=== PATIENT | female | born 1950 | race Two or more races ===

== ENCOUNTER 2017-09-24 14:10 | Inpatient (IN) | payer MEDICARE ==
[~2017-09-24] VITALS: Ht 170.2 cm; Wt 62.6 kg
[2017-09-24 14:00] VITALS: BP 151/62
[2017-09-24] MEDS ORDERED: LORAZEPAM 1MG TABLET PO PRN (15:15)
[2017-09-24] MEDS ORDERED: TEMAZEPAM 15MG CAPSULE PO PRN (15:15)
[2017-09-24 16:33] VITALS: BP 151/62
[2017-09-24] MEDS ORDERED: testosterone (17:26)
[2017-09-24] MEDS ORDERED: estradiol (17:26)
[2017-09-24] MEDS: DOCUSATE SODIUM 100MG CAPSULE PO SCH (17:40)
[2017-09-24 20:00] VITALS: BP 175/63
[2017-09-24] MEDS: METOPROLOL TARTRATE 25MG TABLET PO SCH (20:29)
[2017-09-24] MEDS: HYDROCODONE/ACETAMINOPHEN 5/325MG TABLET PO PRN (20:30)
[2017-09-24 23:00] VITALS: BP 161/70
[2017-09-25 07:00] VITALS: BP 161/71
[2017-09-25 07:12] LABS: HEMATOCRIT. 36.6 % (36.0-48.0); HEMOGLOBIN. 12.2 g/dL (12.0-16.0); MEAN CORPUSCULAR HEMOGLOBIN 33.3 pg (28.0-32.0); MEAN CORPUSCULAR VOLUME 99.9 fL (81.0-99.0); MEAN PLATELET VOLUME 10.5 fl (7.4-10.4); PLATELET 154 x1000/uL (130-400); RED BLOOD CELL COUNT 3.66 mill/uL (4.2-5.4); RED CELL DISTRIBUTION WIDTH 13.2 % (11.6-14.6)
[2017-09-25 07:46] LABS: CHLORIDE 103 mEq/L (98-107)
[2017-09-25] MEDS: CITALOPRAM HYDROBROMIDE 20MG TABLET PO SCH (08:22)
[2017-09-25] MEDS: CALCITONIN,SALMON, 3.7 ML NASAL SPRAY ONENSTRL SCH (08:22)
[2017-09-25] MEDS: FAMOTIDINE 20MG TABLET PO SCH (08:22)
[2017-09-25] MEDS: DOCUSATE SODIUM 100MG CAPSULE PO SCH ×2 (08:23→17:02)
[2017-09-25] MEDS: METOPROLOL TARTRATE 25MG TABLET PO SCH ×2 (08:23→20:51)
[2017-09-25 09:00] VITALS: BP 130/66
[2017-09-25] MEDS: ENOXAPARIN 40MG/0.4ML SYR SUBCUT SCH (09:08)
[2017-09-25] MEDS: HYDROCODONE/ACETAMINOPHEN 5/325MG TABLET PO PRN ×2 (09:11→20:52)
[2017-09-25] MEDS: ACETAMINOPHEN 325MG TABLET PO PRN (17:06)
[2017-09-25 20:00] VITALS: BP 130/52
[2017-09-25] MEDS: CLONIDINE 0.1MG TABLET PO SCH (22:00)
[2017-09-26] MEDS: CLONIDINE 0.1MG TABLET PO SCH ×3 (06:00→21:46)
[2017-09-26 06:44] LABS: HEMATOCRIT. 36.1 % (36.0-48.0); HEMOGLOBIN. 12.4 g/dL (12.0-16.0); MEAN CORPUSCULAR HEMOGLOBIN 34.3 pg (28.0-32.0); MEAN CORPUSCULAR VOLUME 99.5 fL (81.0-99.0); MEAN PLATELET VOLUME 10.5 fl (7.4-10.4); PLATELET 162 x1000/uL (130-400); RED BLOOD CELL COUNT 3.63 mill/uL (4.2-5.4)
[2017-09-26 07:09] LABS: CHLORIDE 105 mEq/L (98-107)
[2017-09-26 07:28] LABS: HDL CHOLESTEROL 64 mg/dL (40-59); LDL CHOLESTEROL 91 mg/dL (5-100); TOTAL IRON BINDING CAPACITY 333 ug/dL (250-450)
[2017-09-26 07:29] VITALS: BP 151/57
[2017-09-26 09:04] LABS: PLATELET ESTIMATE NORMAL
[2017-09-26] MEDS: CALCITONIN,SALMON, 3.7 ML NASAL SPRAY ONENSTRL SCH (09:22)
[2017-09-26] MEDS: HYDROCODONE/ACETAMINOPHEN 5/325MG TABLET PO PRN (09:23)
[2017-09-26] MEDS: FAMOTIDINE 20MG TABLET PO SCH (09:23)
[2017-09-26] MEDS: DOCUSATE SODIUM 100MG CAPSULE PO SCH ×2 (09:23→17:52)
[2017-09-26] MEDS: ENOXAPARIN 40MG/0.4ML SYR SUBCUT SCH (09:24)
[2017-09-26] MEDS: METOPROLOL TARTRATE 25MG TABLET PO SCH ×2 (09:24→20:36)
[2017-09-26] MEDS: CITALOPRAM HYDROBROMIDE 20MG TABLET PO SCH (09:24)
[2017-09-26 12:07] LABS: FOLIC ACID (FOLATE) SERUM 19.1 ng/mL (>5.38)
[2017-09-26] MEDS: FERROUS SULFATE 325MG TABLET PO SCH ×2 (13:09→17:52)
[2017-09-26 13:19] LABS: PLATELET ESTIMATE NORMAL
[2017-09-26] MEDS: ACETAMINOPHEN 325MG TABLET PO PRN ×2 (14:25→21:45)
[2017-09-26 20:00] VITALS: BP 113/33
[2017-09-27] MEDS: CLONIDINE 0.1MG TABLET PO SCH ×3 (05:42→21:36)
[2017-09-27 08:00] VITALS: BP 120/52
[2017-09-27] MEDS: FERROUS SULFATE 325MG TABLET PO SCH ×3 (09:56→17:29)
[2017-09-27] MEDS: CITALOPRAM HYDROBROMIDE 20MG TABLET PO SCH (09:56)
[2017-09-27] MEDS: ASCORBIC ACID 500 MG TABLET PO SCH (09:56)
[2017-09-27] MEDS: DOCUSATE SODIUM 100MG CAPSULE PO SCH ×2 (09:56→17:29)
[2017-09-27] MEDS: FAMOTIDINE 20MG TABLET PO SCH (09:57)
[2017-09-27] MEDS: HYDROCODONE/ACETAMINOPHEN 5/325MG TABLET PO PRN (09:57)
[2017-09-27] MEDS: ENOXAPARIN 40MG/0.4ML SYR SUBCUT SCH (09:58)
[2017-09-27] MEDS: METOPROLOL TARTRATE 25MG TABLET PO SCH ×2 (09:58→21:00)
[2017-09-27] MEDS: CALCITONIN,SALMON, 3.7 ML NASAL SPRAY ONENSTRL SCH (09:58)
[2017-09-27 20:00] VITALS: BP 125/38
[2017-09-27] MEDS: ACETAMINOPHEN 325MG TABLET PO PRN (20:03)
[2017-09-27] MEDS: DIPHENHYDRAMINE 25MG CAPSULE PO PRN (21:41)
[2017-09-28] MEDS: CLONIDINE 0.1MG TABLET PO SCH ×3 (05:44→21:57)
[2017-09-28 08:08] VITALS: BP 122/45
[2017-09-28] MEDS: CALCITONIN,SALMON, 3.7 ML NASAL SPRAY ONENSTRL SCH (08:21)
[2017-09-28] MEDS: ASCORBIC ACID 500 MG TABLET PO SCH (08:23)
[2017-09-28] MEDS: FAMOTIDINE 20MG TABLET PO SCH (08:23)
[2017-09-28] MEDS: METOPROLOL TARTRATE 25MG TABLET PO SCH ×2 (08:23→21:00)
[2017-09-28] MEDS: CITALOPRAM HYDROBROMIDE 20MG TABLET PO SCH (08:24)
[2017-09-28] MEDS: DOCUSATE SODIUM 100MG CAPSULE PO SCH ×3 (08:24→17:19)
[2017-09-28] MEDS: FERROUS SULFATE 325MG TABLET PO SCH ×3 (08:24→17:19)
[2017-09-28] MEDS: ENOXAPARIN 40MG/0.4ML SYR SUBCUT SCH (08:25)
[2017-09-28 10:55] VITALS: BP 148/56
[2017-09-28] MEDS: HYDROCODONE/ACETAMINOPHEN 5/325MG TABLET PO PRN ×2 (11:03→22:02)
[2017-09-28 13:50] VITALS: BP 147/57
[2017-09-28 15:40] VITALS: BP 130/39
[2017-09-28 20:00] VITALS: BP 134/42
[2017-09-29] MEDS: CLONIDINE 0.1MG TABLET PO SCH ×3 (06:00→21:46)
[2017-09-29 06:58] LABS: CHLORIDE 105 mEq/L (98-107)
[2017-09-29 07:20] LABS: EOSINOPHILS % 1.8 % (0.0-5.0); HEMATOCRIT. 34.1 % (36.0-48.0); HEMOGLOBIN. 11.6 g/dL (12.0-16.0); LYMPHOCYTES % 22.4 % (20.0-50.0); MEAN CORPUSCULAR HEMOGLOBIN 33.9 pg (28.0-32.0); MEAN CORPUSCULAR VOLUME 99.9 fL (81.0-99.0); MEAN PLATELET VOLUME 10.9 fl (7.4-10.4); MONOCYTES % 14.6 % (2.0-8.0); NEUTROPHILS % 60.2 % (40.0-76.0); PLATELET 171 x1000/uL (130-400); RED BLOOD CELL COUNT 3.42 mill/uL (4.2-5.4); RED CELL DISTRIBUTION WIDTH 13.1 % (11.6-14.6)
[2017-09-29 08:00] VITALS: BP 157/49
[2017-09-29] MEDS: CALCITONIN,SALMON, 3.7 ML NASAL SPRAY ONENSTRL SCH (08:28)
[2017-09-29] MEDS: FERROUS SULFATE 325MG TABLET PO SCH ×3 (08:29→18:09)
[2017-09-29] MEDS: FAMOTIDINE 20MG TABLET PO SCH (08:29)
[2017-09-29] MEDS: ASCORBIC ACID 500 MG TABLET PO SCH (08:29)
[2017-09-29] MEDS: ENOXAPARIN 40MG/0.4ML SYR SUBCUT SCH (08:29)
[2017-09-29] MEDS: CITALOPRAM HYDROBROMIDE 20MG TABLET PO SCH (08:30)
[2017-09-29] MEDS: METOPROLOL TARTRATE 25MG TABLET PO SCH ×2 (08:30→21:00)
[2017-09-29] MEDS: DOCUSATE SODIUM 100MG CAPSULE PO SCH ×2 (08:37→17:00)
[2017-09-29 09:05] VITALS: BP_SYST 135
[2017-09-29] MEDS: HYDROCODONE/ACETAMINOPHEN 5/325MG TABLET PO PRN ×2 (09:10→22:24)
[2017-09-29] MEDS: ACETAMINOPHEN 325MG TABLET PO PRN (10:44)
[2017-09-29 13:00] VITALS: BP 150/48
[2017-09-29 20:00] VITALS: BP_SYST 134; BP_SYST 157; BP_DIAS 68; BP_DIAS 85
[2017-09-29] MEDS ORDERED: TEMAZEPAM 15MG CAPSULE PO PRN (20:30)
[2017-09-29] MEDS: LORAZEPAM 1MG TABLET PO PRN (20:53)
[2017-09-30] MEDS: CLONIDINE 0.1MG TABLET PO SCH ×3 (06:00→22:00)
[2017-09-30 08:00] VITALS: BP 152/60
[2017-09-30] MEDS: FERROUS SULFATE 325MG TABLET PO SCH ×3 (08:50→16:23)
[2017-09-30] MEDS: METOPROLOL TARTRATE 25MG TABLET PO SCH ×2 (08:52→21:00)
[2017-09-30] MEDS: ASCORBIC ACID 500 MG TABLET PO SCH (08:52)
[2017-09-30] MEDS: CITALOPRAM HYDROBROMIDE 20MG TABLET PO SCH (08:53)
[2017-09-30] MEDS: FAMOTIDINE 20MG TABLET PO SCH (08:54)
[2017-09-30] MEDS: ENOXAPARIN 40MG/0.4ML SYR SUBCUT SCH (08:54)
[2017-09-30] MEDS: CALCITONIN,SALMON, 3.7 ML NASAL SPRAY ONENSTRL SCH (08:55)
[2017-09-30] MEDS: DOCUSATE SODIUM 100MG CAPSULE PO SCH ×2 (09:00→16:24)
[2017-09-30] MEDS: HYDROCODONE/ACETAMINOPHEN 5/325MG TABLET PO PRN (09:14)
[2017-09-30 13:07] LABS: 25-HYDROXY VITAMIN D3 48 ng/mL (.)
[2017-09-30 20:00] VITALS: BP 122/59
[2017-09-30] MEDS: LORAZEPAM 1MG TABLET PO PRN (21:27)
[2017-10-01] MEDS: CLONIDINE 0.1MG TABLET PO SCH ×3 (05:30→22:00)
[2017-10-01 07:20] LABS: EOSINOPHILS % 1.9 % (0.0-5.0); HEMATOCRIT. 38.2 % (36.0-48.0); HEMOGLOBIN. 12.7 g/dL (12.0-16.0); LYMPHOCYTES % 23.4 % (20.0-50.0); MEAN CORPUSCULAR VOLUME 99.8 fL (81.0-99.0); MEAN PLATELET VOLUME 11.1 fl (7.4-10.4); MONOCYTES % 13.2 % (2.0-8.0); NEUTROPHILS % 60.5 % (40.0-76.0); PLATELET 210 x1000/uL (130-400); RED BLOOD CELL COUNT 3.83 mill/uL (4.2-5.4); RED CELL DISTRIBUTION WIDTH 13.2 % (11.6-14.6)
[2017-10-01 08:00] VITALS: BP 126/76
[2017-10-01 08:48] LABS: CHLORIDE 106 mEq/L (98-107)
[2017-10-01] MEDS: FERROUS SULFATE 325MG TABLET PO SCH ×3 (09:05→17:56)
[2017-10-01] MEDS: DOCUSATE SODIUM 100MG CAPSULE PO SCH ×2 (09:05→17:56)
[2017-10-01] MEDS: CITALOPRAM HYDROBROMIDE 20MG TABLET PO SCH (09:05)
[2017-10-01] MEDS: ASCORBIC ACID 500 MG TABLET PO SCH (09:06)
[2017-10-01] MEDS: FAMOTIDINE 20MG TABLET PO SCH (09:06)
[2017-10-01] MEDS: METOPROLOL TARTRATE 25MG TABLET PO SCH ×2 (09:06→20:32)
[2017-10-01] MEDS: HYDROCODONE/ACETAMINOPHEN 5/325MG TABLET PO PRN ×2 (09:07→14:45)
[2017-10-01] MEDS: ENOXAPARIN 40MG/0.4ML SYR SUBCUT SCH (09:08)
[2017-10-01] MEDS: CALCITONIN,SALMON, 3.7 ML NASAL SPRAY ONENSTRL SCH (09:18)
[2017-10-01 20:00] VITALS: BP 137/45
[2017-10-01] MEDS: LORAZEPAM 1MG TABLET PO PRN (20:35)
[2017-10-02] MEDS: CLONIDINE 0.1MG TABLET PO SCH ×3 (06:00→21:08)
[2017-10-02] MEDS: HYDROCODONE/ACETAMINOPHEN 5/325MG TABLET PO PRN ×2 (06:54→20:36)
[2017-10-02 08:00] VITALS: BP 166/58
[2017-10-02] MEDS: FERROUS SULFATE 325MG TABLET PO SCH ×3 (10:12→18:12)
[2017-10-02] MEDS: ASCORBIC ACID 500 MG TABLET PO SCH (10:12)
[2017-10-02] MEDS: CALCITONIN,SALMON, 3.7 ML NASAL SPRAY ONENSTRL SCH (10:12)
[2017-10-02] MEDS: DOCUSATE SODIUM 100MG CAPSULE PO SCH ×2 (10:12→18:12)
[2017-10-02] MEDS: CITALOPRAM HYDROBROMIDE 20MG TABLET PO SCH (10:12)
[2017-10-02] MEDS: ENOXAPARIN 40MG/0.4ML SYR SUBCUT SCH (10:12)
[2017-10-02] MEDS: FAMOTIDINE 20MG TABLET PO SCH (10:12)
[2017-10-02] MEDS: METOPROLOL TARTRATE 25MG TABLET PO SCH ×2 (10:13→21:00)
[2017-10-02] MEDS ORDERED: TEMAZEPAM 15MG CAPSULE PO PRN (18:15)
[2017-10-02 20:00] VITALS: BP 144/41
[2017-10-02] MEDS: LORAZEPAM 1MG TABLET PO PRN (22:13)
[2017-10-03] MEDS: CLONIDINE 0.1MG TABLET PO SCH ×3 (05:30→21:41)
[2017-10-03 08:18] VITALS: BP 163/65
[2017-10-03] MEDS: METOPROLOL TARTRATE 25MG TABLET PO SCH ×2 (08:41→21:40)
[2017-10-03] MEDS: ASCORBIC ACID 500 MG TABLET PO SCH (08:41)
[2017-10-03] MEDS: CITALOPRAM HYDROBROMIDE 20MG TABLET PO SCH ×2 (08:42→08:47)
[2017-10-03] MEDS: FAMOTIDINE 20MG TABLET PO SCH (08:42)
[2017-10-03] MEDS: DOCUSATE SODIUM 100MG CAPSULE PO SCH ×2 (08:42→17:32)
[2017-10-03] MEDS: FERROUS SULFATE 325MG TABLET PO SCH ×3 (08:42→17:32)
[2017-10-03] MEDS: CALCITONIN,SALMON, 3.7 ML NASAL SPRAY ONENSTRL SCH (08:42)
[2017-10-03] MEDS: ENOXAPARIN 40MG/0.4ML SYR SUBCUT SCH (08:45)
[2017-10-03] MEDS: HYDROCODONE/ACETAMINOPHEN 5/325MG TABLET PO PRN (11:02)
[2017-10-03 20:00] VITALS: BP 155/61
[2017-10-03 21:30] VITALS: BP 123/56
[2017-10-03] MEDS: LORAZEPAM 1MG TABLET PO PRN (21:41)
[2017-10-04] MEDS: DIPHENHYDRAMINE 25MG CAPSULE PO PRN ×2 (00:50→23:43)
[2017-10-04] MEDS: CLONIDINE 0.1MG TABLET PO SCH ×3 (06:00→21:06)
[2017-10-04] MEDS: HYDROCODONE/ACETAMINOPHEN 5/325MG TABLET PO PRN (06:17)
[2017-10-04 07:00] VITALS: BP 161/57
[2017-10-04] MEDS: DOCUSATE SODIUM 100MG CAPSULE PO SCH ×2 (09:00→16:30)
[2017-10-04] MEDS: ENOXAPARIN 40MG/0.4ML SYR SUBCUT SCH (09:25)
[2017-10-04] MEDS: CALCITONIN,SALMON, 3.7 ML NASAL SPRAY ONENSTRL SCH (09:26)
[2017-10-04] MEDS: ASCORBIC ACID 500 MG TABLET PO SCH (09:26)
[2017-10-04] MEDS: FAMOTIDINE 20MG TABLET PO SCH (09:27)
[2017-10-04] MEDS: METOPROLOL TARTRATE 25MG TABLET PO SCH ×2 (09:27→20:53)
[2017-10-04] MEDS: FERROUS SULFATE 325MG TABLET PO SCH ×3 (09:27→16:22)
[2017-10-04] MEDS: CITALOPRAM HYDROBROMIDE 20MG TABLET PO SCH (09:27)
[2017-10-04 13:45] VITALS: BP 123/51
[2017-10-04 20:00] VITALS: BP 140/60
[2017-10-04] MEDS: LORAZEPAM 1MG TABLET PO PRN (20:57)
[2017-10-05] MEDS: CLONIDINE 0.1MG TABLET PO SCH ×3 (05:33→22:00)
[2017-10-05 06:00] VITALS: BP 143/60
[2017-10-05 06:51] LABS: BASOPHILS % 0.9 % (0.0-2.0); EOSINOPHILS % 1.9 % (0.0-5.0); HEMATOCRIT. 38.6 % (36.0-48.0); HEMOGLOBIN. 12.9 g/dL (12.0-16.0); LYMPHOCYTES % 27.3 % (20.0-50.0); MEAN CORPUSCULAR HEMOGLOBIN 33.2 pg (28.0-32.0); MEAN CORPUSCULAR VOLUME 99.4 fL (81.0-99.0); MEAN PLATELET VOLUME 10.7 fl (7.4-10.4); MONOCYTES % 11.5 % (2.0-8.0); NEUTROPHILS % 58.4 % (40.0-76.0); PLATELET 246 x1000/uL (130-400); RED BLOOD CELL COUNT 3.89 mill/uL (4.2-5.4)
[2017-10-05 07:28] LABS: CHLORIDE 104 mEq/L (98-107)
[2017-10-05 08:13] VITALS: BP 151/68
[2017-10-05] MEDS: ENOXAPARIN 40MG/0.4ML SYR SUBCUT SCH (08:31)
[2017-10-05] MEDS: CALCITONIN,SALMON, 3.7 ML NASAL SPRAY ONENSTRL SCH (08:32)
[2017-10-05] MEDS: ASCORBIC ACID 500 MG TABLET PO SCH (08:32)
[2017-10-05] MEDS: FAMOTIDINE 20MG TABLET PO SCH (08:32)
[2017-10-05] MEDS: CITALOPRAM HYDROBROMIDE 20MG TABLET PO SCH (08:32)
[2017-10-05] MEDS: FERROUS SULFATE 325MG TABLET PO SCH ×3 (08:32→17:35)
[2017-10-05] MEDS: DOCUSATE SODIUM 100MG CAPSULE PO SCH ×2 (08:33→17:35)
[2017-10-05] MEDS: METOPROLOL TARTRATE 25MG TABLET PO SCH ×2 (08:35→21:20)
[2017-10-05] MEDS ORDERED: HYDROCODONE/ACETAMINOPHEN 5/325MG TABLET PO PRN (09:30)
[2017-10-05 20:00] VITALS: BP 158/50
[2017-10-05] MEDS: DIPHENHYDRAMINE 25MG CAPSULE PO PRN (21:48)
[2017-10-06] MEDS: CLONIDINE 0.1MG TABLET PO SCH ×2 (06:00→13:23)
[2017-10-06 08:00] VITALS: BP 145/58
[2017-10-06] MEDS: DOCUSATE SODIUM 100MG CAPSULE PO SCH (09:00)
[2017-10-06] MEDS: CITALOPRAM HYDROBROMIDE 20MG TABLET PO SCH (09:29)
[2017-10-06] MEDS: FERROUS SULFATE 325MG TABLET PO SCH ×2 (09:29→13:29)
[2017-10-06] MEDS: ASCORBIC ACID 500 MG TABLET PO SCH (09:30)
[2017-10-06] MEDS: METOPROLOL TARTRATE 25MG TABLET PO SCH (09:30)
[2017-10-06] MEDS: FAMOTIDINE 20MG TABLET PO SCH (09:30)
[2017-10-06] MEDS: ENOXAPARIN 40MG/0.4ML SYR SUBCUT SCH (09:31)
[2017-10-06] MEDS: CALCITONIN,SALMON, 3.7 ML NASAL SPRAY ONENSTRL SCH (09:31)
[2017-10-06 13:48] VITALS: BP 145/58
== END 2017-10-06 14:45 | disposition home or self-care (01) | DRG 563 ==
LOC: UNDOADMIN 14:10
PROVIDERS: ADMIT Physical Medicine & Rehabilitation Spinal Cord Injury Medicine; ATTEND Ophthalmology
DX: S82.225A Nondisplaced transverse fracture of shaft of left tibia, initial encounter for closed fracture (principal); E46 Unspecified protein-calorie malnutrition; S82.102A Unspecified fracture of upper end of left tibia, initial encounter for closed fracture; S82.402A Unspecified fracture of shaft of left fibula, initial encounter for closed fracture; D64.9 Anemia, unspecified; F41.9 Anxiety disorder, unspecified; H91.90 Unspecified hearing loss, unspecified ear; I25.2 Old myocardial infarction; F32.9 Major depressive disorder, single episode, unspecified; I10 Essential (primary) hypertension; H93.19 Tinnitus, unspecified ear; G14 Postpolio syndrome; I25.10 Atherosclerotic heart disease of native coronary artery without angina pectoris; G83.14 Monoplegia of lower limb affecting left nondominant side; E61.1 Iron deficiency; M79.609 Pain in unspecified limb; R26.9 Unspecified abnormalities of gait and mobility; R53.81 Other malaise; A80.9 Acute poliomyelitis, unspecified; F06.31 Mood disorder due to known physiological condition with depressive features; Z88.8 Allergy status to other drugs, medicaments and biological substances; Z87.891 Personal history of nicotine dependence; W01.0XXA Fall on same level from slipping, tripping and stumbling without subsequent striking against object, initial encounter; Y93.89 Activity, other specified; Y92.091 Bathroom in other non-institutional residence as the place of occurrence of the external cause; Y99.8 Other external cause status; Z82.49 Family history of ischemic heart disease and other diseases of the circulatory system
CPT/HCPCS: 36415; 80048; 80053; 80061; 82306; 82607; 82728; 82746; 83540; 83550; 84134; 84443; 84630; 85025; 93970; 97110; 97116; 97162; 97166; 97530; 97535; 97542; J1650; Q0163